=== PATIENT | male | born 1995 | race Caucasian/White ===

== ENCOUNTER 2025-06-29 00:42 | Emergency (ER) | payer OTHER ==
--- NOTE | 2025-06-29 00:57 | ERPHSYRPT ---
- History of Present Illness Time Seen by Provider: 06/29/25 00:57 Source: patient, family Exam Limitations: no limitations Physician History: This is a 30-year-old white male patient arrives via private vehicle accompanied by family because of scrotal pain that began 2 days ago and has been intermittently tender with questionable cloudy penile discharge. Patient did not suffer any acute fall or trauma to the scrotum or testicles. Patient does have a history of psoriasis. Patient did shave himself within the last couple of days as well. Other than the shaving of this genital area, he has had no other type of trauma. He does not believe he has a sexually transmitted disease. He is experiencing intermittent dysuria. Patient is on daily Suboxone medication Timing/Duration: day(s) (2) Activites at Onset: none Quality: burning, sharpness Onset Location: scrotal (Generalized scrotum) Severity of Pain-Max: moderate Severity of Pain-Current: mild (When not touching the area) Modifying Factors: Improves With: urinating Associated Symptoms: dysuria Prior abdominal problems: none Sexual intercourse history: non-contributory Allergies/Adverse Reactions: No Known Drug Allergies Allergy (Unverified 06/29/25 01:03) Home Medications: Buprenorphine HCl/Naloxone HCl [Suboxone 8 mg-2 mg Sl Film] 1 film SL DAILY 06/29/25 [History] Travel Risk - International Travel Have you traveled outside of the country in past 3 weeks: No - Emerging Infectious Disease Are you exhibiting symptoms associated with any current EIDs: No - Past Medical History Pertinent Past Medical History: Yes - Review of Systems Constitutional: No Symptoms Eyes: No Symptoms Ears, Nose, & Throat: No Symptoms Respiratory: No Symptoms Cardiac: No Symptoms Abdominal/Gastrointestinal: No Symptoms Genitourinary Symptoms: Dysuria, Penile Discharge (Possible cloudy), Other (Sharp burning scrotal pain), No Testicle Pain Musculoskeletal: No Symptoms Skin: No Symptoms Neurological: No Symptoms Psychological: No Symptoms Endocrine: No Symptoms Hematologic/Lymphatic: No Symptoms Immunological/Allergic: No Symptoms All Other Systems: Reviewed and Negative - Nursing Vital Signs Nursing Vital Signs: Initial Vital Signs Pulse Rate 93 H 06/29/25 01:02 Blood Pressure 142/96 06/29/25 01:02 O2 Sat by Pulse Oximetry 98 06/29/25 01:02 Pain Scale Pain Intensity 7 - Physical Exam General Appearance: no apparent distress, alert, anxiety Eye Exam: PERRL/EOMI, eyes nml inspection Ears, Nose, Throat Exam: normal ENT inspection, moist mucous membranes Neck Exam: normal inspection, non-tender, supple, full range of motion Respiratory Exam: normal breath sounds, lungs clear, airway intact, No chest tenderness, No respiratory distress Gastrointestinal/Abdomen Exam: No tenderness Male Genital Exam: normal genitalia, no hernia, scrotum tenderness (R), scrotum tenderness (L), urethral discharge (Small amount of cloudy discharge), circumcised (There are psoriatic lesions on the patient's glans of his penis. 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 There is also generalized genital skin rash where he shaved as well) Lymphatic Exam: No adenopathy SpO2 Interpretation: normal O2 Delivery: Room Air - Course Nursing assessment & vital signs reviewed: Yes Ordered Tests: Active Orders 24 hr Category Date Time Status UA W/RFX UR CULTURE Stat Lab 06/29/25 02:00 Completed Medication Summary Discontinued Medications Generic Name Dose Route Start Last Admin Trade Name Marito PRN Reason Stop Dose Admin Hydromorphone HCl 1 mg 06/29/25 01:24 06/29/25 01:34 Hydromorphone 1 Mg/1ml Inj IM 06/29/25 01:25 1 mg STAT ONE Administration Hydromorphone HCl Confirm 06/29/25 01:33 Hydromorphone 1 Mg/1ml Inj Administered 06/29/25 01:34 Dose 1 mg .ROUTE .STK-MED ONE Ondansetron HCl 4 mg 06/29/25 01:25 06/29/25 01:34 Zofran 4 Mg/Udtablet Orally Disintegrating PO 06/29/25 01:26 4 mg STAT ONE Administration Ondansetron HCl Confirm 06/29/25 01:33 Zofran 4 Mg/Udtablet Orally Disintegrating Administered 06/29/25 01:34 Dose 4 mg .ROUTE .STK-MED ONE Phenazopyridine HCl 200 mg 06/29/25 01:24 06/29/25 01:34 Phenazopyridine Hcl 200 Mg Tablet PO 06/29/25 01:25 200 mg STAT ONE Administration Phenazopyridine HCl Confirm 06/29/25 01:33 Phenazopyridine Hcl 200 Mg Tablet Administered 06/29/25 01:34 Dose 200 mg .ROUTE .STK-MED ONE Lab/Rad Data: Laboratory Results 06/29/25 06/29/25 Range/Units 02:00 02:00 Urine Color Yellow (Yellow) Urine Appearance Cloudy A (Clear) Urine pH 7.0 (4.6-8.0) Ur Specific [place] 1.020 (1.005-1.030) Urine Protein 30 (Negative) Urine Glucose (UA) Negative (Negative) mg/dL Urine Ketones Negative (Negative) Urine Blood Negative (Negative) Urine Nitrite Negative (Negative) Urine Bilirubin Negative (Negative) Urine Urobilinogen 1.0 A (0.2) mg/dL Ur Leukocyte Esterase Negative (Negative) U Hyaline Cast (Auto) NONE SEEN (0-2) /LPF Urine Microscopic RBC 0-2 (0-5) /HPF Urine Microscopic WBC 0-2 (0-5) /HPF Ur Epithelial Cells None Seen (None Seen) /HPF Urine Bacteria None Seen (None Seen) /HPF Urine Culture Reflexed NO (NO) Chlamydia DNA Probe NOT DETECTED (NEGATIVE) N.gonorrhoeae DNA Probe NOT DETECTED (NEGATIVE) - Progress Progress: improved, pain not gone completely Progress Note: 06/29/25 01:45 My medical decision making and the assignment of low to moderate complexity of this patient's medical issue today is based on review of the patient's past medical history, reviewed patient's medication list, reviewed patient drug allergy list, history present illness and physical findings on examination. The workup in this patient includes GC/chlamydia urine test, urinalysis, provide the patient with intramuscular dose of Solu-Medrol, Dilaudid intramuscularly and oral Pyridium. Differential diagnosis includes but is not limited to gonorrhea infection, chlamydia infection, urinary tract infection 06/29/25 03:50 I interpreted the patient's laboratory data results, based on the laboratory data results there are no acute, emergent medical issues. There is no evidence of urinary tract infection or sexually transmitted infections. The patient scrotum is slightly reddened. This is likely secondary to mild scrotal cellulitis which may be causing his pain. He had shaved his scrotum and genital area within the last 48 hours. Counseled pt/family regarding: lab results, diagnosis, need for follow-up Medical Desision Making - Diagnostic Testing Diagnostic test were ordered, analyzed, and reviewed by me: Yes - Risk of complications Low Risk: Low risk of morbidity from additional dx testing or treatment The pt has a mod risk of morbidity or mortality based on: Need for prescription drug management - Departure Departure Disposition: Home Clinical Impression: Cellulitis of scrotum Condition: Stable Critical Care Time: No Referrals: DOCTOR,NO FAMILY [Primary Care Provider, UNKNOWN] - Follow up/PCP as directed Additional Instructions: Complete the antibiotic therapy. Call your primary care provider on 07/01/2025, to make arrangements for follow-up appointment for further evaluation management. Keep the genital and scrotal areas clean. Do not shave this area until you have no more pain or redness of the scrotum Prescriptions: Cephalexin Mh 500 mg [Keflex 500 mg] 500 mg PO TID #15 cap
[2025-06-29 01:17] VITALS: RESP 18; TEMP 97.6
[2025-06-29] MEDS ORDERED: PYRIDIUM 200 MG ONE (01:33)
[2025-06-29] MEDS ORDERED: ZOFRAN ODT 4 MG ONE (01:33)
[2025-06-29] MEDS ORDERED: Hydromorphone 1 mg/ml Injection ONE (01:33)
[2025-06-29] MEDS: Hydromorphone 1 mg/ml Injection IM ONE (01:34)
[2025-06-29] MEDS: ZOFRAN ODT 4 MG PO ONE (01:34)
[2025-06-29] MEDS: PYRIDIUM 200 MG PO ONE (01:34)
[2025-06-29 02:16] LABS: Glucose, Urine Negative (Negative); Protein,Urine Dip 30 (Negative); RBC 0-2 /HPF (0-5); WBC 0-2 /HPF (0-5)
[2025-06-29 03:30] LABS: CHLAMYDIA DNA NOT DETECTED (NEGATIVE)
[2025-06-29] MEDS ORDERED: KEFLEX 500 MG ONE (03:53)
[2025-06-29] MEDS: KEFLEX 500 MG PO ONE (03:54)
[2025-06-29 04:03] VITALS: BP 127/82; PULSE 80; O2SAT 98
== END 2025-06-29 04:21 | disposition home or self-care (01) ==
LOC: ED 00:42
DX: N49.2 Inflammatory disorders of scrotum (principal); N50.82 Scrotal pain; Z79.891 Long term (current) use of opiate analgesic